=== PATIENT | female | born 1970 | race Caucasian/White ===

== ENCOUNTER → 2022-01-24 07:53 | Outpatient (CLI) | payer OTHER, SELFPAY ==
--- NOTE | ~2022-01-24 | XR_ITS ---
EXAMINATION: XR hand RT min 3V EXAM DATE: 01/24/2022 08:07 INDICATION: M79.643 - Pain in unspecified hand . TECHNIQUE: Right hand frontal, lateral and oblique projections obtained and reviewed. There is no pr ior study for comparison. FINDINGS: Right metacarpal bones are unremarkable. There is polyarticular interphalangeal primary os teoarthritis, all digits. There is mild to moderate 1st carpometacarpal primary osteoarthritis. There are no bony erosions identified. There are no acute fractures or dislocations identified. There is no subcutaneous gas. The soft tissue is unremarkable. There are no radiopaque foreign bodies. IMPRESSION: Polyarticular right hand osteoarthritis. Reviewed, dictated and finalized at location A.
--- NOTE | ~2022-01-24 | XR_ITS ---
EXAMINATION: XR hand LT min 3V EXAM DATE: 01/24/2022 08:07 INDICATION: M79.643 - Pain in unspecified hand. TECHNIQUE: Left hand frontal, lateral and oblique projections obtained and reviewed. Correlation is m santhosh to contralateral hand same date. FINDINGS: Left metacarpal bones are unremarkable. There is polyarticular primary osteoarthritis as follows: Mild at the-5th interphalangeal joints. The re are no bony erosions identified. There are no acute fractures or dislocations identified. There i s no subcutaneous gas. The soft tissue is unremarkable. There are no radiopaque foreign bodies. IMPRESSION: Mild left hand polyarticular interphalangeal osteoarthritis. Reviewed, dictated and finalized at location A.
== END ==
PROVIDERS: PCP Family Medicine; Visit Provider Family Medicine
DX: M19.041 Primary osteoarthritis, right hand (principal); M19.042 Primary osteoarthritis, left hand
CPT/HCPCS: 73130

== ENCOUNTER → 2022-07-02 08:02 | Outpatient (CLI) | payer OTHER, SELFPAY ==
--- NOTE | ~2022-07-02 | XR_ITS ---
EXAMINATION: XR chest 2V DATE: 07/02/2022 08:13 INDICATION: Chest pain, unspecified TECHNIQUE: PA and lateral views of the chest are obtained. COMPARISON: None available FINDINGS: The lungs are free of acute opacities. No pleural effusion or pneumothorax. The cardiomedia stinal silhouette is normal. There is mild thoracic spondylosis. IMPRESSION: 1. No acute cardiopulmonary abnormality. Reviewed, dictated and finalized at location B.
== END ==
PROVIDERS: PCP Physician Assistant; Visit Provider Physician Assistant
DX: R07.9 Chest pain, unspecified (principal); Z79.899 Other long term (current) drug therapy
CPT/HCPCS: 71046

== ENCOUNTER → 2022-09-04 14:16 | Outpatient (CLI) | payer OTHER, SELFPAY ==
--- NOTE | ~2022-09-04 | MM_ITS ---
EXAMINATION: MM screening abhijit BI w marjorie HISTORY: Screening TECHNIQUE: Craniocaudal and mediolateral oblique 3-D tomosynthesis images were obtained and synthetic 2-D images were generated. CAD analysis was submitted and interpreted. COMPARISON: Comparison to multiple prior studies sequentially, with oldest reviewed study dated 03/14. BREAST PARENCHYMAL COMPOSITION: There are scattered areas of fibroglandular density. FINDINGS: There is no evidence of suspicious mass, calcification, or architectural distortion to sugg est malignancy in either breast. There has been no suspicious interval change. IMPRESSION: 1. No mammographic evidence of malignancy. 2. Recommend routine screening mammography in one year. BI-RADS Category 1: Negative Reviewed, dictated and finalized at location A. OR JAVA WEB DEVELOPER
== END ==
PROVIDERS: PCP Emergency Medicine; Visit Provider Physician Assistant
DX: Z12.31 Encounter for screening mammogram for malignant neoplasm of breast (principal)
CPT/HCPCS: 77063; 77067

== ENCOUNTER 2022-10-01 07:29 | Outpatient (CLI) | payer OTHER, SELFPAY ==
--- NOTE | 2022-10-01 07:36 | ECHO_ITS ---
Patient Info Name: Mary May Age: 52 years : 1970 Gender: Female Ht: 64 in Wt: 195 lbs BSA: 2.03 m2 HR: 73 bpm BP: 153 / 102 mmHg Technical Quality: Good Exam Date: 10/01/2022 7:59 AM Exam Location: [facility] Patient Status: Outpatient Admit Date: 10/01/2022 Staff Ordering Physician: Lonnie Betancur MD Cloth Roll Winder: Richard Bull RDCS, RT Attending Provider: Lonnie Betancur MD Referring Physician: Pipe NEWMAN; Exam Type: CA echo doppler color flow Study Info Indications R42 - Dizziness and giddiness Complete two-dimensional, color flow and Doppler transthoracic echocardiogram is performed. Strain analysis performed. Summary 1. Complete two-dimensional, color flow and Doppler transthoracic echocardiogram is performed. 2. Left ventricular chamber dimension is normal. 3. Left ventricular systolic function is normal, estimated at 60-65%. 4. The left ventricular diastolic function is grade I diastolic dysfunction. 5. E/e' 6 is not elevated. 6. Global longitudinal strain is normal at -17.3%. Left Ventricle E/e' 6 is not elevated. Global longitudinal strain is normal at -17.3%. Left ventricular chamber dimension is normal. Left ventricular systolic function is normal, estimated at 60-65%. The left ventricular diastolic function is grade I diastolic dysfunction. Right Ventricle Right ventricular systolic function is normal and with normal TAPSE 1.9 cm. Right ventricular chamber dimension is normal. Left Atria Left atrial chamber dimension is normal. Right Atria Right atrial chamber dimension is normal. Aortic Valve The aortic valve is trileaflet. There is no aortic valve stenosis. There is no aortic valve regurgitation. Pulmonic Valve There is no pulmonic regurgitation. Mitral Valve There is no mitral valve stenosis. There is no mitral valve regurgitation. Tricuspid Valve There is no tricuspid valve regurgitation. Pericardium/Pleural There is no pericardial effusion. Inferior Vena Cava Normal inferior vena cava with >50% collapse upon inspiration consistent with normal right atrial pressure, 5 mmHg. Aorta The aortic root size at the sinus of Valsalva is normal. Left Ventricular Outflow Tract Name Value Normal LVOT 2D LVOT Diameter 2.0 cm LVOT Doppler LVOT Peak Gradient 2 mmHg LVOT Mean Gradient 1 mmHg LVOT VTI 13 cm LVOT VTI/AV VTI Ratio 0.8 LVOT Stroke Volume 43 ml LVOT CO 3.5 l/min LVOT CI 1.7 l/min/m2 Mitral Valve Name Value Normal MV Doppler MV Decel Burnet 495 cm/s2 MV PHT 38 ms MV Area (PHT)
--- NOTE | 2022-10-01 08:24 | ECG_ITS ---
Measurements Intervals Blunt Rate: 79 P: 48 RI: 144 QRS: 54 QRSD: 88 T: 39 QT: 372 QTc: 428 Interpretive Statements SINUS RHYTHM NO PREVIOUS ECG AVAILABLE FOR COMPARISON Electronically Signed On 10-01-2022 13:20:58 HEADSTART TEACHER by Tiffany Handley M.D.
== END 2022-10-01 07:30 | disposition home or self-care (01) ==
LOC: ANHCARD 07:31
PROVIDERS: PCP Emergency Medicine; Visit Provider Emergency Medicine
DX: R42 Dizziness and giddiness (principal)
CPT/HCPCS: 93005; 93306

== ENCOUNTER 2023-07-13 13:48 | Emergency (ER) | payer OTHER, SELFPAY ==
[2023-07-13] VITALS (35 sets, daily range): BP systolic 105–148; BP diastolic 61–87; PULSE 88–109; RESP 15–22; TEMP 36.4; O2SAT 94–100
--- NOTE | ~2023-07-13 | CT_ITS ---
EXAMINATION: CT abdomen pelvis w con DATE: 07/13/2023 17:49 INDICATION: Epigastric and left lower quadrant abdominal pain TECHNIQUE: Computed tomography (CT) of the abdomen and pelvis was performed with 100 mL Omnipaque-350 intravenous contrast. Automated exposure control and iterative reconstruction technique were employe d. The dose-length product was 1103.39 mGy-cm. COMPARISON: None FINDINGS: Linear discoid atelectasis in the right lower lobe. Heart size is normal. No pericardial or pleural e ffusion. Cholecystectomy clips the gallbladder fossa. Liver, spleen, pancreas, bilateral adrenal glan ds and kidneys are normal. There are few scattered diverticula along the sigmoid colon without adjace nt from trace stranding to suggest diverticulitis. No bowel obstruction. Normal appendix. Uterus and bilateral ovaries are unremarkable. There is a small amount of free fluid in the pelvis which is of s lightly greater than simple fluid attenuation. No abscess or free intraperitoneal gas. No pathologica lly enlarged abdominal or pelvic lymphadenopathy. Small fat-containing umbilical hernia. Moderate to severe disc height loss at L5-S1. Otherwise minimal scattered degenerative skeletal changes. IMPRESSION: 1. Small amount of ascites with slightly greater than simple fluid attenuation in the pelvis which is of indeterminate etiology. Differential includes small amount of hemoperitoneum or exudative ascites such as in the setting of peritonitis or pelvic inflammatory disease. 2. Small fat-containing umbilical hernia. Reviewed, dictated and finalized at location A. IMPRESSION: 1. Small amount of ascites with slightly greater than simple fluid attenuation in the pelvis which is of indeterminate etiology. Differential includes small a mount of hemoperitoneum or exudative ascites such as in the setting of peritoni tis or pelvic inflammatory disease. 2. Small fat-containing umbilical hernia.
--- NOTE | 2023-07-13 16:53 | ED.GENADULT ---
HPI - General Adult General Chief complaint: Allergic Reaction Stated complaint: allergic reaction Time Seen by Provider: 07/13/23 16:16 History of Present Illness HPI narrative: 52-year-old female presented the emergency department for multiple issues. Patient was having nausea vomiting and abdominal pain yesterday and then today had an allergic reaction to her allergy shot. Patient has a prior history of reaction to her allergy shot in May where she had hives and difficulty breathing and swallowing. Patient had a recurrent reaction today to her allergy shot. Patient called the allergy clinic and return to the allergy clinic and was treated with p.o. prednisone, famotidine, Benadryl and IM epi. Patient arrived to the emergency department by EMS from the allergy center. Patient's last epinephrine was given at 1 PM. Upon arrival to the ED patient is still having hives. Related Data Home Medications Medication Instructions Recorded Confirmed famciclovir 500 mg tablet 500 mg PO Q8H 07/09/23 07/09/23 Allergies Allergy/AdvReac Type Severity Reaction Status Date / Time nitrofurantoin Allergy Unknown Pt does Verified 07/13/23 14:07 not remember reaction Sulfa (Sulfonamide Allergy Unknown Verified 07/13/23 14:07 Antibiotics) Review of Systems Review of Systems: All systems reviewed & are unremarkable except as noted in HPI and below PMFSH Surgical History Surgical History History of cholecystectomy Family History Family History Grandparent Diabetes mellitus Family history of elevated blood lipids Family history of cardiovascular disease Family history of malignant neoplasm of breast in first degree relative Other No family history of malignant neoplasm Social History Social History Smoking status: Never smoker Alcohol intake: never Substance use: never Substance use type: does not use Lack of Transportation: No Lack of Food: Never True Current Housing: I Have Housing Concerned About Future Housing: No Difficulty Paying Gas/Electric Bills: No Difficulty Paying for Meds: No Currently Unemployed: No Education: High School Diploma/GED Difficulty w/ Childcare or Family Care: No Exam Narrative: APPEARANCE: Well appearing, no pain, no distress, well-nourished. HEAD: normocephalic, atraumatic. EYES: PERRLA/EOMI, conjunctivae clear. NOSE: Normal no drainage NECK: Supple. No adenopathy, no masses. RESPIRATORY: Airway patent, respirations nonlabored. Clear to auscultation bilaterally, no rales, rhonchi, wheezing. CARDIOVASCULAR: Regular rate and rhythm without murmurs rubs or gallops. ABDOMINAL: Soft, epigastric and left lower quadrant tenderness to palpation MUSCULOSKELETAL: Moves all extremities. Strength/ROM intact, No edema, No calf tenderness. NEURO: Alert. Cranial nerves II through XII intact. SKIN: Warm, dry. Normal Color Course Course Emergency Course: 52-year-old female presented the ED for evaluation after allergic reaction. Patient is afebrile but does have a leukocytosis of 22. Patient was treated with steroids today. Patient's CMP does show elevated creatinine 1.3 but patient was treated with IV fluids. UA shows no significant evidence of infection. Patient's abdominal tenderness is more epigastric and not lower. Patient CT scan was concerning for increased abdominal fluid. This appeared to be of higher attenuation than pathologic fluid. I discussed the CT findings with the patient with the possibility of intra-abdominal bleeding and intra-abdominal infection. Patient was offered admission for serial observations but patient is aware of the risk of possible bleeding and possible infection and she does prefer to go home. Patient was also made aware of the risk that she does h
[2023-07-13] MEDS: BELLADONNA ALK/PHENOB ELIX 10 ML, MAG HYDROX/ALUMINUM HYD/SIMETH 30 ML, LIDOCAINE HCL 2... PO (16:58)
[2023-07-13 16:59] LABS: Basophils Absolute Auto 0.1 K/mm3 (0.0-0.1); Basophils Percent Auto 0.3 % (0.2-1.2); Eosinophils Percent Auto 0.1 % (0-4.4); Hematocrit 44.8 % (37.0-47.0); Immature Granulocyte Absolute 0.21 K/mm3 (0.00-0.031); Immature Granulocyte Percent A 0.9 % (0-0.5); Lymphocytes Absolute Auto 0.96 K/mm3 (0.9-3.2); Lymphocytes Percent Auto 4.3 % (18.3-44.2); Mean Corpuscular HGB Conc 33.5 g/dl (32-36); Mean Corpuscular Hemoglobin 30.2 pg (26-34); Mean Corpuscular Volume 90.3 fl (80-100); Monocytes Absolute Auto 0.6 K/mm3 (0.1-0.6); Monocytes Percent Auto 2.8 % (2.6-8.5); Neutrophils Absolute Auto 20.4 K/mm3 (1.3-6.7); Neutrophils Percent Auto 91.6 % (45.5-73.1); Platelet Count Result 399 k/mm3 (150-375); Red Blood Count 4.96 M/mm3 (4.2-5.4); White Blood Count 22.3 K/mm3 (4.5-10.0)
[2023-07-13] MEDS: methylPREDNISolone SOD SUCC 125 MG VIAL IV PUSH (17:00)
[2023-07-13] MEDS: diphenhydrAMINE HCl INJ 50 MG/ML VIAL 25 MG IV PUSH (17:00)
[2023-07-13 17:09] LABS: Alanine Aminotransferase 64 U/L (6-35); Albumin Level 4.3 g/dL (3.5-5.1); Alkaline Phosphatase 76 U/L (38-126); Anion Gap 10 mmol/L (8-16); Aspartate Amino Transferase 51 U/L (14-36); Bilirubin,Total 1.3 mg/dL (0.2-1.3); Blood Urea Nitrogen 16 mg/dL (7-17); Calcium 8.9 mg/dL (8.4-10.2); Carbon Dioxide 23 mmol/L (22-30); Chloride 104 mmol/L (98-107); Estimated CRCL calculation 51 ml/min; Estimated Glomerular Filt Rate 43; Glucose 121 mg/dL (65-110); Lipase 72 U/L (23-300); Potassium 3.8 mmol/L (3.4-5.0); Sodium 137 mmol/L (137-145)
[2023-07-13 17:21] LABS: Appearance Urine Cloudy (Clear); Bacteria Urine None Seen /hpf; Bilirubin Urine Negative (Negative); Blood Urine Negative (Negative); Color Urine Yellow (Yellow); Glucose Urine UA Negative (Negative); Ketones Urine Trace mg/dL (Negative); Leukocyte Esterase Ur Trace LEU/UL (Negative); Need Manual Microscopic Reviewed; Nitrate Urine Negative (Negative); Protein Urine Negative (Negative); RBC Urine 0-2 /hpf (0-2); Specific Grav Ur 1.016 (1.001-1.035); Squamous Epithelial Cell Urine Few /hpf (Few); WBC Urine 0-5 /hpf; pH Urine 5.5 (5.0-9.0)
[2023-07-13 17:28] LABS: Add Urine Microscopic? YES
[2023-07-13 17:29] LABS: Pregnancy On Board Control Positive; Urine Pregnancy Test Negative
== END 2023-07-13 19:26 | disposition home or self-care (01) ==
PROVIDERS: Emergency Provider Emergency Medicine; PCP Emergency Medicine
DX: T78.40XA Allergy, unspecified, initial encounter (principal); R10.10 Upper abdominal pain, unspecified
CPT/HCPCS: 36415; 74177; 80053; 81001; 81025; 83690; 85025; 96374; 96375; 99284; A9270; J1200; J2930; Q9967

== ENCOUNTER 2023-07-21 10:30 | Outpatient (CLI) | payer OTHER, SELFPAY ==
[2023-07-21 18:26] LABS: Basophils Absolute Auto 0.2 K/mm3 (0.0-0.1); Eosinophils Absolute Auto 0.6 K/mm3 (0-0.3); Eosinophils Percent Auto 3.4 % (0-4.4); Hematocrit 43.5 % (37.0-47.0); Hemoglobin 14.5 g/dL (12.0-15.0); Immature Granulocyte Absolute 0.68 K/mm3 (0.00-0.031); Immature Granulocyte Percent A 4.2 % (0-0.5); Lymphocytes Absolute Auto 2.33 K/mm3 (0.9-3.2); Lymphocytes Percent Auto 14.2 % (18.3-44.2); Mean Corpuscular HGB Conc 33.3 g/dl (32-36); Mean Corpuscular Hemoglobin 29.9 pg (26-34); Mean Corpuscular Volume 89.7 fl (80-100); Mean Platelet Volume 10.2 fl (7.4-10.4); Monocytes Absolute Auto 1.2 K/mm3 (0.1-0.6); Monocytes Percent Auto 7.2 % (2.6-8.5); Neutrophils Absolute Auto 11.5 K/mm3 (1.3-6.7); Platelet Count Result 396 k/mm3 (150-375); Red Blood Count 4.85 M/mm3 (4.2-5.4); Red Cell Distribution Width 12.8 % (11.5-14.5); White Blood Count 16.4 K/mm3 (4.5-10.0)
[2023-07-21 19:37] LABS: Alanine Aminotransferase 196 U/L (6-35); Alkaline Phosphatase 79 U/L (38-126); Amylase 80 U/L (30-110); Anion Gap 7 mmol/L (8-16); Aspartate Amino Transferase 62 U/L (14-36); Bilirubin,Total 0.7 mg/dL (0.2-1.3); Blood Urea Nitrogen 12 mg/dL (7-17); Calcium 8.8 mg/dL (8.4-10.2); Carbon Dioxide 32 mmol/L (22-30); Chloride 101 mmol/L (98-107); Estimated Glomerular Filt Rate 53; Glucose 57 mg/dL (65-110); Lipase 128 U/L (23-300); Potassium 3.9 mmol/L (3.4-5.0); Sodium 140 mmol/L (137-145)
== END 2023-07-21 10:31 | disposition home or self-care (01) ==
LOC: ANHGOSHLAB 10:31
PROVIDERS: PCP Emergency Medicine; Visit Provider Nurse Practitioner Family
DX: R93.89 Abnormal findings on diagnostic imaging of other specified body structures (principal)
CPT/HCPCS: 36415; 80053; 82150; 83690; 85025

== ENCOUNTER 2024-08-27 08:02 | Outpatient (CLI) | payer OTHER, SELFPAY ==
--- NOTE | ~2024-08-27 | MM_ITS ---
EXAMINATION: MM screening abhijit BI w marjorie HISTORY: Screening mammogram TECHNIQUE: Craniocaudal and mediolateral oblique 3-D tomosynthesis images were obtained and synthetic 2-D images were generated. CAD analysis was submitted and interpreted. COMPARISON: 09/04/2022, 05/10/2018 BREAST PARENCHYMAL COMPOSITION:Not Dense. There are scattered areas of fibroglandular density. FINDINGS: No suspicious mass, calcification, or architectural distortion are identified in either lois ast to suggest malignancy. There has been no suspicious interval change. IMPRESSION: No mammographic evidence of malignancy. Recommend routine screening mammography in one year. BI-RADS Category 1: Negative Reviewed, dictated and finalized at location . ADER OPERATOR
== END 2024-08-27 08:03 | disposition home or self-care (01) ==
LOC: MICIMG 08:02
PROVIDERS: PCP Emergency Medicine; Visit Provider Emergency Medicine
DX: Z12.31 Encounter for screening mammogram for malignant neoplasm of breast (principal)
CPT/HCPCS: 77063; 77067

== ENCOUNTER 2025-06-16 11:07 | Outpatient (CLI) | payer OTHER, SELFPAY ==
--- NOTE | ~2025-06-16 | US_ITS ---
EXAMINATION: US soft tissue UE LT DATE: 06/16/2025 11:25 INDICATION: Palpable area at the third digit the left hand. TECHNIQUE: Multiple grayscale and Doppler ultrasound images of the region of concern at the dorsal aspect of the distal third digit between the nail bed in the distal interphalangeal joint were obtained. COMPARISON: None FINDINGS: There is a small anechoic fluid collection dorsal to the base of the third distal phalanx which measures approximately 3.4 x 1.3 x 3.8 mm with neck appearing to track towards the joint space on the cine images most consistent with a small ganglion cyst. No solid nodules identified. IMPRESSION: 1. Very small anechoic fluid collection at the region of concern dorsal to the base of the third distal phalanx which appears to represent a small ganglion cyst arising from the immediately more proximal distal interphalangeal joint. Reviewed, dictated and finalized at location A. IMPRESSION: 1. Very small anechoic fluid collection at the region of concern dorsal to the base of the third distal phalanx which appears to represent a small ganglion cy st arising from the immediately more proximal distal interphalangeal joint.
== END 2025-06-16 11:08 | disposition home or self-care (01) ==
LOC: MICIMG 11:08
PROVIDERS: PCP Nurse Practitioner Family; Visit Provider Nurse Practitioner Family
DX: M67.442 Ganglion, left hand (principal)
CPT/HCPCS: 76882